=== PATIENT | female | born 1975 | race Caucasian/White ===

== ENCOUNTER 2020-02-13 12:53 | Emergency (ER) | payer BC, SELFPAY ==
--- NOTE | ~2020-02-13 | CT_ITS ---
EXAMINATION: CT abdomen pelvis wo con DATE: 02/13/2020 14:40 INDICATION: Left flank pain. TECHNIQUE: Computed tomography (CT) of the abdomen and pelvis was performed without intravenous contr ast. Automated exposure control and iterative reconstruction technique were employed. The dose-length product was 775.14 mGy-cm. COMPARISON: None. FINDINGS: The visualized portions of the lung bases demonstrate mild atelectasis. No pleural effusion . The heart size is normal. No pericardial effusion. There are changes of gastric bypass procedure. T he liver is normal. Calcifications in the spleen are consistent with old granulomatous disease. There are gallstones in the gallbladder, which is normal in size. The pancreas, adrenal glands, and kidney s are normal. There is no urolithiasis. The appendix is normal. There are no dilated loops of bowel. There are no pathologically enlarged lymph nodes. There is no free intraperitoneal fluid. There is mi ld thoracolumbar spondylosis. IMPRESSION: 1. Cholelithiasis. Reviewed, dictated and finalized at location A. TY LEAD IMPRESSION: 1. Cholelithiasis.
[2020-02-13 13:07] VITALS: BP 122/52; PULSE 63; RESP 20; TEMP 36.9; O2SAT 100
[2020-02-13 13:21] LABS: Basophils Percent Auto 0.5 % (0.2-1.2); Eosinophils Percent Auto 0.4 % (0-4.4); Hematocrit 41.1 % (37.0-47.0); Hemoglobin 13.4 g/dL (12.0-15.0); Immature Granulocyte Absolute 0.01 K/mm3 (0.00-0.031); Immature Granulocyte Percent A 0.1 % (0-0.5); Lymphocytes Absolute Auto 1.11 K/mm3 (0.9-3.2); Lymphocytes Percent Auto 15.1 % (18.3-44.2); Mean Corpuscular HGB Conc 32.6 g/dl (32-36); Mean Platelet Volume 11.4 fl (7.4-10.4); Monocytes Absolute Auto 0.3 K/mm3 (0.1-0.6); Monocytes Percent Auto 4.2 % (2.6-8.5); Neutrophils Absolute Auto 5.8 K/mm3 (1.3-6.7); Neutrophils Percent Auto 79.7 % (45.5-73.1); Platelet Count Result 197 k/mm3 (150-375); Red Blood Count 4.62 M/mm3 (4.2-5.4); White Blood Count 7.3 K/mm3 (4.5-10.0)
[2020-02-13 13:33] LABS: Add Urine Microscopic? NO; Appearance Urine Clear (Clear); Bilirubin Urine Negative (Negative); Blood Urine Negative (Negative); Color Urine Straw (Yellow); Glucose Urine UA Negative (Negative); Ketones Urine Negative (Negative); Leukocyte Esterase Ur Negative LEU/UL (Negative); Nitrate Urine Negative (Negative); Protein Urine Negative (Negative); Specific Grav Ur 1.011 (1.001-1.035); Urobilinogen Urine Negative mg/dL (<2.0)
[2020-02-13 13:34] LABS: Anion Gap 8 mmol/L (8-16); Blood Urea Nitrogen 19 mg/dL (7-17); Calcium 9.2 mg/dL (8.4-10.2); Carbon Dioxide 28 mmol/L (22-30); Chloride 102 mmol/L (98-107); Estimated CRCL calculation 107 ml/min; Estimated Glomerular Filt Rate > 60; Glucose 117 mg/dL (65-105); Sodium 138 mmol/L (137-145)
--- NOTE | 2020-02-13 14:47 | ED.ABDPAIN ---
HPI - Abdominal Pain General Chief Complaint: Abdominal Pain Stated Complaint: abd pain Time Seen by Provider: 02/13/20 14:30 History of Present Illness HPI narrative: 44 yo female presents to the ED for left flank pain. Pain started yesterday. left flank radiating to LLQ. Constant. Sharp. She has never had this pain before. Seen at urgent care and sent here for further evaluation. No dysuria, hematuria, diarrhea, constipation, fever. Review of Systems Review of Systems: All systems reviewed & are unremarkable except as noted in HPI and below Constitutional: Constitutional: Denies fever(s) Respiratory: Respiratory: Denies dyspnea Gastrointestinal: Gastrointestinal: Reports abdominal pain, Denies diarrhea, Denies nausea and Denies vomiting Genitourinary: Genitourinary: Denies hematuria and Denies dysuria Musculoskeletal: Musculoskeletal: Reports back pain Neurologic: Denies weakness [facility] Past Medical History Medical History Healthy female adult Social History Social History Gender identity (if verbalized by the patient): Female Exam Const: General: healthy appearing, no acute distress and alert Orientation/consciousness: patient oriented x3 HENMT: Head: normal to inspection Neck: Neck: normal visual inspection Resp: Effort & Inspection: normal respiratory effort Auscultation: clear to auscultation bilaterally, no rales, no rhonchi and no wheezes Cardio: Jugular venous distension: no JVD Rate: regular rate Rhythm: regular rhythm Heart sounds: no murmurs GI: Inspection: non-distended GI Palp: Yes Soft to palpation and Yes Tenderness to palpation present (GI) (Left sided) : General: Yes CVA tenderness on the left Skin: General skin exam: normal color Neuro: General: patient oriented x3 and moves all extremities Speech: normal speech Gait exam (Neuro): Normal gait present Extrem: General: normal to inspection and no edema Psych: Appearance: well kempt Affect: normal affect Course Vital Signs Vital signs: Vital Signs Temperature 36.9 C 02/13/20 13:07 Pulse Rate 63 02/13/20 13:07 Respiratory Rate 20 02/13/20 13:07 Blood Pressure 122/52 L 02/13/20 13:07 Pulse Oximetry 100 02/13/20 13:07 Temperature 36.9 C 02/13/20 13:07 Pulse Rate 88 02/13/20 15:58 Respiratory Rate 16 02/13/20 15:58 Blood Pressure 142/74 H 02/13/20 15:58 Pulse Oximetry 98 02/13/20 15:58 MDM - Abdominal Pain MDM Narrative Medical decision making narrative: CT shows gall stones. This is not likely to be related to her current symptoms. Work-up otherwise negative. feeling better after Bentyl Differential Diagnosis Differential diagnosis: Likely calculus of kidney, diverticulitis and other (UTI, musculoskeletal) Medical Records Attestation: I reviewed the patient's medical records. Lab Data Attestation: I reviewed the patient's lab results. Result diagrams: 02/13/20 13:13 02/13/20 13:13 Labs: Lab Results 02/13/20 02/13/20 02/13/20 Range/Units 13:13 13:13 13:27 WBC 7.3 (4.5-10.0) K/mm3 RBC 4.62 (4.2-5.4) M/mm3 Hgb 13.4 (12.0-15.0) g/dL Hct 41.1 (37.0-47.0) % MCV 89.0 (80-100) fl MCH 29.0 (26-34) pg MCHC 32.6 (32-36) g/dl RDW 13.0 (11.5-14.5) % Plt Count 197 (150-375) k/mm3 MPV 11.4 H (7.4-10.4) fl Immature Gran % (Auto) 0.1 (0-0.5) % Neut % (Auto) 79.7 H (45.5-73.1) % Lymph % (Auto) 15.1 L (18.3-44.2) % [place] % (Auto) 4.2 (2.6-8.5) % Eos % (Auto) 0.4 (0-4.4) % Baso % (Auto) 0.5 (0.2-1.2) % Lymph # (Auto) 1.11 (0.9-3.2) K/mm3 [place] # (Auto) 0.3 (0.1-0.6) K/mm3 Eos # (Auto) 0.0 (0-0.3) K/mm3 Baso # (Auto) 0.0 (0.0-0.1) K/mm3 Abs Immat Gran (auto) 0.01 (0.00-0.031) K/mm3 Absolute Neuts (auto) 5.8 (1.3-6.7) K/mm3 Absolute Nucleated RBC
[2020-02-13] MEDS: DICYCLOMINE HCL INJ 20 MG/2 ML VIAL IM (15:20)
[2020-02-13 15:58] VITALS: BP 142/74; PULSE 88; RESP 16; O2SAT 98
== END 2020-02-13 16:15 | disposition home or self-care (01) ==
PROVIDERS: Emergency Provider Emergency Medicine; PCP Family Medicine
DX: R10.32 Left lower quadrant pain (principal); K80.20 Calculus of gallbladder without cholecystitis without obstruction
CPT/HCPCS: 36415; 74176; 80048; 81003; 81025; 85025; 96372; 99284; J0500

== ENCOUNTER 2022-11-13 09:49 | Emergency (ER) | payer BC, SELFPAY ==
--- NOTE | ~2022-11-13 | XR_ITS ---
EXAMINATION: XR foot RT min 3V DATE: 11/13/2022 10:10 INDICATION: Lateral right foot pain. Fall. TECHNIQUE: 4 views of right foot were obtained. COMPARISON: None. FINDINGS: There is moderate hallux valgus. There is a nondisplaced intra-articular comminuted fractur e of base of fifth metatarsal. There is mild osteoarthritis of first metatarsophalangeal joint. There is an enthesophyte at the posterior aspect of calcaneal tuberosity. IMPRESSION: 1. Nondisplaced comminuted intra-articular fracture of base of fifth metatarsal. Reviewed, dictated and finalized at location A. IMPRESSION: 1. Nondisplaced comminuted intra-articular fracture of base of fifth metatarsal .
[2022-11-13 09:51] VITALS: BP 124/70; PULSE 66; RESP 19; TEMP 36.8; O2SAT 100
--- NOTE | 2022-11-13 09:52 | ED.LOWEXIN ---
HPI - Extremity Injury (Lower) General Chief Complaint: Extremity Injury, Lower Stated Complaint: R foot injury Time Seen by Provider: 11/13/22 09:51 Source: patient Mode of arrival: ambulatory Limitations: no limitations History of Present Illness HPI Narrative: 47 year old female presents to the Emergency Department complaining of right foot injury. Patient states [place]. Pain to lateral asepct. complaint: foot injury Onset (ago): day(s) (1) Type of Injury: other (rolled foot) Place: other (airport) Severity: moderate Relieving factors: rest Exacerbating factors: weight bearing, movement and palpation Context: fall Associated symptoms: snap/pop sensation, swelling and able to partially bear weight Other symptoms: none Related Data Home Medications Medication Instructions Recorded Confirmed levothyroxine 175 mcg tablet 175 mcg PO DAILY 11/13/22 11/13/22 (Synthroid) liothyronine 5 mcg tablet 5 mcg PO DAILY 11/13/22 11/13/22 Allergies Allergy/AdvReac Type Severity Reaction Status Date / Time No Known Allergies Allergy Verified 11/13/22 10:03 Review of Systems Review of Systems: All systems reviewed & are unremarkable except as noted in HPI and below Constitutional: Constitutional: Reports as per HPI Eyes: Eyes: Reports as per HPI ENT: Reports system reviewed and no additional complaints, except as documented Cardiovascular: Cardiovascular: Reports as per HPI Respiratory: Respiratory: Reports as per HPI Gastrointestinal: Gastrointestinal: Reports as per HPI Genitourinary: Genitourinary: Reports no additional female genitourinary complaints Musculoskeletal: Musculoskeletal: Reports no additional musculoskeletal complaints Integumentary/Breasts: Skin/Breast: Reports system reviewed and no additional complaints, except as docu Neurologic: Reports system reviewed and no additional complaints, except as documented [facility] Past Medical History Medical History Healthy female adult Social History Social History Gender identity (if verbalized by the patient): Female Exam Const: General: healthy appearing, no acute distress and alert Nutritional Appearance: obese Orientation/consciousness: patient oriented x3 Limitations: no limitations HENMT: Head: normal to inspection Ears: external ears normal Face/Nose/Sinus: Normal external nose present Face and sinus: normal facial exam Eyes: Pupils: Equal, round and reactive pupils present EOM: EOMs intact bilaterally Direct Ophthalmoscopy: no photophobia Neck: Neck: normal visual inspection Chest: Chest palpation & inspection: normal inspection of the chest Resp: Effort & Inspection: normal respiratory effort Cardio: Rate: regular rate GI: Inspection: non-distended Skin: General skin exam: normal color Rashes: no rashes Wounds: no wounds Neuro: General: patient oriented x3, moves all extremities and no meningeal signs Speech: normal speech Other: grossly normal Extrem: General: edema Other: Swelling to dorsal - lateral right foot with tenderness to proximal 5th metatarsal Psych: Mental Status: mental status grossly normal Affect: normal affect Attitude: cooperative Course Course Emergency Course: 47 y/o female presents to the ED c/o right foot injury and pain. Patient states she injured stepping [place] curb [place] at airport. PE: swelling and tenderness to right foot at 5th MT XR R Foot: fx prox R 5th MT Tx: post op shoe *reviewed and discussed XR results with patient and further management. patient voices understanding and agreement Vital Signs Vital signs: Vital Signs Temperature 36.8 C 11/13/22 09:51 Pulse Rate 66 11/13/22 09:51 Respiratory Rate 19 11/13/22 09:51 Blood Pressure 124/70 11/13/22 09:51 Pulse Oximetry 100 11/13/22 09
[2022-11-13 10:39] VITALS: BP 124/70; PULSE 66; RESP 19; TEMP 36.8; O2SAT 100
== END 2022-11-13 10:39 | disposition home or self-care (01) ==
PROVIDERS: Emergency Provider Emergency Medicine
DX: S92.351A Displaced fracture of fifth metatarsal bone, right foot, initial encounter for closed fracture (principal); X50.0XXA Overexertion from strenuous movement or load, initial encounter
CPT/HCPCS: 73630; 99284

== ENCOUNTER 2024-07-29 10:40 | Emergency (ER) | payer BC, SELFPAY ==
--- NOTE | ~2024-07-29 | CT_ITS ---
EXAM: CT abdomen pelvis wo con - 07/29/2024 11:40 CDT History: 49 years old Female with Right flank pain radiating to groin TECHNIQUE: Multidetector CT of the abdomen and pelvis without contrast. Coronal and sagittal reforma ts were also provided for review. Automatic exposure control was used for this study. COMPARISON: 02/13/20. FINDINGS: VISUALIZED CHEST: Visualized lungs are clear. ABDOMEN and PELVIS: LIVER: Within normal limits. GALLBLADDER: Postcholecystectomy. BILE DUCTS: No dilatation. SPLEEN: Within normal limits. PANCREAS: Within normal limits. ADRENAL GLANDS: Within normal limits. KIDNEYS and URETERS: No hydronephrosis or hydroureter. No nephroureterolithiasis. URINARY BLADDER: Within normal limits. STOMACH and BOWEL: No abnormal bowel wall thickening. No obstruction. Status post gastric bypass surg javi. Normal appendix. REPRODUCTIVE ORGANS: Within normal limits. MESENTERY/PERITONEAL CAVITY: No free fluid or pneumoperitoneum. LYMPH NODES: No abdominal or pelvic lymphadenopathy. ABDOMINAL WALL: Within normal limits. VASCULATURE: Within normal limits. MUSCULOSKELETAL: Within normal limits. IMPRESSION: No evidence of acute pathology in the abdomen and pelvis. Reviewed, dictated and finalized at location A.
[2024-07-29 10:41] VITALS: BP 126/72; PULSE 73; RESP 18; TEMP 37.1; O2SAT 100
--- NOTE | 2024-07-29 10:57 | ED_ITS ---
HPI - Back Pain/Injury General Chief Complaint: Back Pain/Injury Stated Complaint: back pain Time Seen by Provider: 07/29/24 10:42 Source: patient Mode of arrival: ambulatory Limitations: no limitations History of Present Illness HPI Narrative: This is a 49-year-old female, with history of thyroid cancer status post thyroidectomy and radionuclear ablation, presenting to the emergency department complaining right lower back pain for the past week. The patient denies any known trauma or change in physical exertion. She states the pain began as [id number] cramping associated with the onset of her menstrual cycle, worsening to 7/10 and radiating to the groin and right buttock. She denies associated fevers, chills, lower extremity weakness, loss of sensation in the groin or loss of bowel/ bladder control. She states she was seen at an urgent care. A urinalysis was reportedly unremarkable. She was discharged with muscle relaxers, prednisone and Tylenol without any improvement. She has no other complaints at this time. Related Data Home Medications ?Medication ?Instructions ?Recorded ?Confirmed ?Last Taken ?Type levothyroxine 175 mcg tablet 175 mcg PO DAILY 11/13/22 11/13/22 Unknown History (Synthroid) liothyronine 5 mcg tablet 5 mcg PO DAILY 11/13/22 11/13/22 Unknown History Allergies Allergy/AdvReac Type Severity Reaction Status Date / Time No Known Allergies Allergy Verified 07/29/24 10:45 Review of Systems 2 Review of Systems: All systems reviewed & are unremarkable except as noted in HPI and below (HPI) PMFSH Past Medical History Medical History (Updated 07/29/24 @ 12:56 by Saman Perkins MD) Cholelithiasis Thyroid cancer Surgical History Surgical History (Updated 07/29/24 @ 11:07 by Saman Perkins MD) History of cholecystectomy Social History Social History Gender identity (if verbalized by the patient): Female Exam 2 Narrative: GENERAL: Well-developed, well-nourished, and in no acute distress, appears uncomfortable. HEAD: Normocephalic, atraumatic. EYES: PERRLA and EOMI. NECK: Supple. No midline spine tenderness to palpation, no step-off or crepitus CHEST: Clear to auscultation. No respiratory distress. No wheezes rales or rhonchi HEART: Regular rate and rhythm. No murmur heard. Normal peripheral pulses. ABDOMEN: Soft, nontender, nondistended, normal active bowel sounds. No noted ecchymosis or erythema BACK: No midline spine tenderness to palpation, no step-off or crepitus. Right flank and paraspinal muscle tenderness to palpation at approximately L1. No noted ecchymosis or erythema EXTREMITIES: Normal range of motion. No edema. SKIN: Warm, dry, no rash. NEURO: Alert and oriented x3. No focal deficit. Moving all 4 limbs spontaneously PSYCH: Normal mood and affect. Course Course Emergency Course: 13:04 - Chemistries unremarkable. urinalysis concerning for hematuria or changes concerning for urinary tract infection. CT abdomen pelvis negative for acute intra-abdominal process. I suspect paraspinal muscle spasm and lumbar radiculopathy as the cause of the patient's pain. Will discharge with recommendation for continued use of steroids and muscle relaxer. Will include a topical NSAID. I advised the patient on gentle stretching exercises, RICE therapy and primary care follow-up. I discussed the findings and recommendations with The patient. Discussed return and emergency precautions including signs/symptoms of cauda equina and epidural abscess. The patient voiced understanding and agreement with the plan. All questions answered to her satisfaction. Vital Signs Vital signs: Vital Signs Temperature 98.8 F 07/29/24 10:41 Pulse Rate 73 07/29/24 10:41 Respiratory Rate 18 07/29/24 10:41 Blood Pressure 126/72 07/29/24 10:41 Pulse Oximetry 100 07/29/24 10:41 Oxygen Delivery Room Air 07/29/24 10:41 Temperature 98.3 F 07/29/24 13:14 Pulse Rate 61 07/29/24 13:14 Respiratory Rate 16 07/29/24 13:14 Blood Pressure 117/43 L 07/29/24 13:14 Pulse Oximetry 100 07/29/24 13:14 Oxygen Delivery Room Air 07/29/24 13:14 MDM - Back Pain/Injury MDM Narrative Medical decision making narrative: plan: Labs, imaging, test, pain control, reassess Differential Diagnosis Differential diagnosis: Likely lumbar radiculopathy, sciatica, strain of lumbar region and other ( fracture, malignancy, endometriosis, kidney stone, other) Lab Data 07/29/24 11:05 Labs: Lab Results 07/29/24 07/29/24 Range/Units 11:05 11:13 Sodium 136 L (137-145) mmol/L Potassium 4.0 (3.4-5.0) mmol/L Chloride 105 (98-107) mmol/L Carbon Dioxide 26 (22-30) mmol/L Anion Gap 5 (4-12) mmol/L BUN 14 D (7-17) mg/dL Creatinine 0.61 L (0.7-1.0) mg/dL Estim Creat Clear Calc 117 ml/min Estimated GFR > 60 (59 - ) Glucose 120 H (65-110) mg/dL Calculated Osmolality 283 L (285-295) mOsm/kg Calcium 8.6 (8.4-10.2) mg/dL Total Bilirubin 0.6 (0.2-1.3) mg/dL AST 31 (14-36) U/L ALT 19 (6-35) U/L Alkaline Phosphatase 71 (38-126) U/L Total Protein 7.1 (6.3-8.2) g/dL Albumin 4.2 (3.5-5.1) g/dL Urine Color Light yellow (Yellow) Urine Appearance Clear (Clear) Urine pH 6.0 (5.0-8.0) Ur Specific [place] <= 1.005 L (1.010-1.020) Urine Protein Negative (Negative) Urine Glucose (UA) Negative (Negative) Urine Ketones Negative (Negative) Ur Blood (Man) Negative (Negative) Urine Nitrate Negative (Negative) Urine Bilirubin Negative (Negative) Urine Urobilinogen 0.2 (0.2-1.0) mg/dL Leukocyte Esterase Rfl Negative (Negative) BRENNEN/UL Urine Test Negative Discharge Plan Discharge Clinical Impression: Lumbar paraspinal muscle spasm Acute right-sided low back pain Qualifiers: Sciatica presence: with sciatica Sciatica laterality: sciatica of right side Q ualified Code(s): M54.41 - Lumbago with sciatica, right side Patient Disposition: Home Condition: Stable Instructions: Antibiotic Form, Lumbar Radiculopathy (ED) Additional Instructions: You were seen in the emergency department. your labs were not concerning for liver or kidney injury. Urinalysis was not concerning for urinary tract infection or blood in the urine. I test was negative. A CT scan of the abdomen pelvis was not concerning for mass, kidney stone, changes concerning for infection or fracture.. If you develop[ ], or if you have other emergent concerns for life, limb, or eyesight, return to the emergency department. Patient Language: Welsh Prescriptions: New diclofenac sodium [Solaraze] 3 % gel 1 applic topical BID Qty: 100 0RF No Action levothyroxine [Synthroid] 175 mcg tablet 175 mcg PO DAILY liothyronine 5 mcg tablet 5 mcg PO DAILY hydrocodone-acetaminophen 10-325 mg tablet 1 tablet PO Q6H PRN (Reason: pain) Qty: 20 0RF Follow-up/Referrals: UNKNOWN,DOCTOR [Non-Staff] - 2 Weeks Time of Disposition: 13:06
[2024-07-29] MEDS: HYDROcodone/acetaminophen (*CRX) 5-325 MG TABLET 1 TAB PO (11:08)
[2024-07-29 11:20] LABS: Alanine Aminotransferase 19 U/L (6-35); Albumin Level 4.2 g/dL (3.5-5.1); Alkaline Phosphatase 71 U/L (38-126); Anion Gap 5 mmol/L (4-12); Aspartate Amino Transferase 31 U/L (14-36); Bilirubin,Total 0.6 mg/dL (0.2-1.3); Blood Urea Nitrogen 14 mg/dL (7-17); Calcium 8.6 mg/dL (8.4-10.2); Carbon Dioxide 26 mmol/L (22-30); Chloride 105 mmol/L (98-107); Estimated CRCL calculation 117 ml/min; Estimated Glomerular Filt Rate > 60; Glucose 120 mg/dL (65-110); Osmolality Calculated 283 mOsm/kg (285-295); Sodium 136 mmol/L (137-145); Total Protein 7.1 g/dL (6.3-8.2)
[2024-07-29 11:31] LABS: Add Urine Microscopic? NO; Appearance Urine Clear (Clear); Bilirubin Urine Negative (Negative); Blood Urine Negative (Negative); Color Urine Light Yellow (Yellow); Glucose Urine UA Negative (Negative); Ketones Urine Negative (Negative); Leukocyte Esterase Ur Negative LEU/UL (Negative); Nitrate Urine Negative (Negative); Protein Urine Negative (Negative); Specific Grav Ur <= 1.005 (1.010-1.020); Urobilinogen Urine 0.2 mg/dL (0.2-1.0)
[2024-07-29 11:33] LABS: Pregnancy On Board Control Positive; Urine Pregnancy Test Negative
[2024-07-29 11:50] VITALS: BP 138/78; PULSE 62; RESP 16; O2SAT 98
[2024-07-29 13:14] VITALS: BP 117/43; PULSE 61; RESP 16; TEMP 36.8; O2SAT 100
== END 2024-07-29 13:16 | disposition home or self-care (01) ==
PROVIDERS: Emergency Provider Preventive Medicine Aerospace Medicine
DX: M54.41 Lumbago with sciatica, right side (principal); M62.830 Muscle spasm of back; Z85.850 Personal history of malignant neoplasm of thyroid
CPT/HCPCS: 36415; 74176; 80053; 81003; 81025; 99284; A9270